=== PATIENT | male | born 1955 | race Caucasian/White ===

== ENCOUNTER 2025-04-01 06:01 | Emergency (ER) | payer MEDICARE ==
[~2025-04-01] VITALS: Ht 182.9 cm; Wt 86.4 kg
[2025-04-01 06:15] VITALS: TEMP 98.505320
[2025-04-01] MEDS: SULFAMETHOX/TRIMETH DS 800-160 MG/TABLET PO ONE (06:23)
[2025-04-01] MEDS: CEPHALEXIN MONOHYDRATE 500 MG CAPSULE PO ONE (06:23)
[2025-04-01] MEDS: LIDOCAINE 1% 10 ML VIAL SQ ONE (06:24)
[2025-04-01 06:30] VITALS: BP 152/65; PULSE 88; RESP 18; O2SAT 98
[2025-04-01] MEDS ORDERED: SULF-261 PO (06:32)
[2025-04-01] MEDS ORDERED: CEPH-558 PO (06:32)
== END 2025-04-01 06:45 | disposition home or self-care (01) ==
LOC: EMS 06:01
DX: L02.212 Cutaneous abscess of back [any part, except buttock and flank] (principal)
CPT/HCPCS: 99284; 10060; J3490; 99283